=== PATIENT | male | born 1975 | race Hispanic/Latino ===

== ENCOUNTER 2022-03-11 11:09 | Emergency (ER) | payer OTHER ==
[~2022-03-11] VITALS: Ht 170.2 cm; Wt 90.7 kg
[2022-03-11 11:14] VITALS: BP 131/94
[2022-03-11] MEDS ORDERED: BUDESONIDE 0.5 MG/2 ML INH IH ONE (12:34)
[2022-03-11] MEDS ORDERED: IPRATROPIUM/ALBUTEROL SULFATE 3 ML SOLUTION IH ONE (12:34)
[2022-03-11] MEDS ORDERED: ALBUTEROL 0.042% 1.25MG/3ML IH ONE (12:34)
== END 2022-03-11 13:01 | disposition home or self-care (01) ==
LOC: EDH 11:09
DX: R03.0 Elevated blood-pressure reading, without diagnosis of hypertension (principal); Z90.49 Acquired absence of other specified parts of digestive tract